=== PATIENT | female | born 1965 | race Two or more races ===

== ENCOUNTER 2017-02-12 09:46 | Emergency (ER) | payer OTHER ==
[2017-02-12 09:53] VITALS: BP 128/89; PULSE 84; RESP 22; TEMP 97.7; O2SAT 95
[2017-02-12] MEDS ORDERED: OXYCODONE/APAP 5/325 TAB PO ONE (10:10)
--- NOTE | 2017-02-12 10:18 | EDPHY ---
H & P Time Seen by Provider: 02/12/17 09:56 HPI/ROS: CHIEF COMPLAINT: Left-sided rib pain HISTORY OF PRESENT ILLNESS: This is a 51-year-old female presenting to the emergency department complaining of left rib pain status post falling. 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 Patient states she did take some Advil after the incident, but has not taken any since then complaining of increased rib pain with deep inspiration. Denies any other complaints REVIEW OF SYSTEMS: Constitutional: No fever, no chills. Eyes: No discharge. No blurred vision ENT: No sore throat. Cardiovascular: No chest pain, no palpitations. Respiratory: No cough, no shortness of breath. Left rib pain with deep inspiration Gastrointestinal: No abdominal pain, no vomiting. Genitourinary: No hematuria. Musculoskeletal: No back pain. left side rib pain Skin: No rashes. Neurological: No headache. Smoking Status: Never smoked Physical Exam: General Appearance: Alert, no distress. HEENT: Normocephalic atraumatic. Pupils equal and round no pallor or injection. Mucous membranes moist. No oral injuries, no malocclusion Respiratory: There are no retractions, Cardiovascular: Regular rate and rhythm. Gastrointestinal: Abdomen is soft and nontender, no masses, bowel sounds normal. Neurological: No focal deficits. Answering questions appropriately. Ambulatory without assistance Skin: Warm and dry, no rashes. Musculoskeletal: Vertebral cervical spine nontender on palpation full range of motion. Left anterior rib tenderness 5th-10th no flail segment, no crepitus. Extremities: symmetrical, full range of motion. Psychiatric: Patient is oriented X 3, patient acting appropriately Constitutional: Initial Vital Signs Temperature (C) 36.5 C 02/12/17 09:48 Heart Rate 84 02/12/17 09:48 Respiratory Rate 22 H 02/12/17 09:48 Blood Pressure 128/89 H 02/12/17 09:48 O2 Sat (%) 95 02/12/17 09:48 O2 Delivery Mode Room Air Allergies/Adverse Reactions: No Known Allergies Allergy (Unverified 02/12/17 09:54) Home Medications: Medication Instructions Recorded Lidocaine 5% [Lidoderm 5% Patch 1 ea TD DAILY #3 patch 02/12/17 (*)] oxyCODONE/APAP 5/325 [Percocet 1 - 2 tab PO Q6H PRN #15 tab 02/12/17 5/325 (*)] Medical Decision Making - Diagnostics Imaging Results: Imaging Impressions Ribs w/Chest X-Ray 02/12/17 10:10 Impression: Negative left ribs and chest. ED Course/Re-evaluation: Discussed ED plan of care: Chest x-ray rib x-ray. Pain medicine 1115: Discussed x-ray results, no acute fracture seen at this time. Discharge home---> stable, discussed all discharge instructions with patient Differential Diagnosis: Other differential diagnosis considered but not limited to rib fracture, pneumothorax, and pleural effusion - Data Points Medications Given: Discontinued Medications Lidocaine (Lidoderm 5%) 1 ea TD DAILY ELAN Stop: 08/12/17 08:59 Last Admin: 02/12/17 10:54 Dose: 1 ea Oxycodone/Acetaminophen (Percocet 5/325) 1 tab PO EDNOW ONE Stop: 02/12/17 10:11 Last Admin: 02/12/17 10:23 Dose: 1 tab Departure - Departure Disposition: Home, Routine, Self-Care Clinical Impression: Contusion of rib on left side Qualifiers: Encounter type: initial encounter Qualified Code(s): S20.212A - Contusion of left front wall of thorax, initial encounter Condition: Good Instructions: Rib Contusion (ED) Additional Instructions: 1. Take medications prescribed/[place] medicamentos evi fueron recetados 2. I would also recommend taking ibuprofen 600 mg every 6-8 hours/Tambien le recomiendo que tome ibuprofeno 600 miligramos cada 6 a 8 horas 3. I have also placed a lidocaine patch to the area leave this on for 12 hours , then take it off for 12 hours/Tambien le coloque un parche de lidocaina en el area, dejelo en nuñez lugar por 12 horas luego se lo debbie por 12 horas 4. Do not use a heating pad on top of the lidocaine patches this can burner skin/No use almohadillas termicas encima del parche de lidocaina porque esto puede quemar nuñez piel 5. Light duty at work for the next 2 weeks/Por las siguentes 2 semanas algo trabajo ligero en nuñez trabajo [place] medicamentos nuevos son: Lidocaine 5% parche young cada tercer mague, pongaselo por 12 horas y remueva por 12 horas Ocycodone/APAP 5/325 miligramos tome 1 a 2 tabletas oral cada 6 horas francisca necesite para dolor Referrals: NONE *PRIMARY CARE P,. [Primary Care Provider] - As per Instructions [facility],. [Clinic] - As per Instructions Stand Alone Forms: Work Limited Duty, Work Excuse Prescriptions: Lidocaine 5% [Lidoderm 5% Patch (*)] 1 ea TD DAILY #3 patch oxyCODONE/APAP 5/325 [Percocet 5/325 (*)] 1 - 2 tab PO Q6H PRN #15 tab PRN Reason: Pain, Severe Print Language: Slovak
[2017-02-12] MEDS ORDERED: LIDOCAINE 5% 1 EA PATCH TD ONE (10:52)
[2017-02-12] MEDS ORDERED: PATCH REMOVAL 1 EA PATCH TD SCH (21:00)
[2017-02-13] MEDS ORDERED: LIDOCAINE 5% 1 EA PATCH TD SCH (09:00)
== END 2017-02-12 11:27 | disposition home or self-care (01) ==
DX: S20.212A Contusion of left front wall of thorax, initial encounter (principal); W18.40XA Slipping, tripping and stumbling without falling, unspecified, initial encounter; Y92.69 Other specified industrial and construction area as the place of occurrence of the external cause; Y99.0 Civilian activity done for income or pay; Y93.89 Activity, other specified